=== PATIENT | female | born 2000 | race Caucasian/White ===

== ENCOUNTER 2019-11-06 17:32 | Observation (INO) ==
[2019-11-06] MEDS ORDERED: diPHENhydraMINE IV 50 MG/ML 1 ml VIAL (BENADRYL) IV PRN (20:29)
[2019-11-06] MEDS ORDERED: oxyCODONE/Acetamin 5/325 mg TAB PO PRN (20:29)
[2019-11-06] MEDS ORDERED: Ondansetron 4 mg VIAL 2 MG/ML 2 ml VIAL IV PRN (20:29)
[2019-11-06] MEDS ORDERED: diPHENhydraMINE 25 mg TAB PO PRN (20:29)
[2019-11-06] MEDS ORDERED: Morphine 2 MG/ML SYRINGE IV PRN (20:46)
[2019-11-06] MEDS: oxyCODONE/Acetamin 5/325 mg TAB PO PRN (22:04)
[2019-11-07] MEDS: oxyCODONE/Acetamin 5/325 mg TAB PO PRN ×2 (03:29→08:47)
[2019-11-07] MEDS ORDERED: ceFAZolin 2 GM PREMIX 0 GM/0 ML BAG ONE (07:22)
[2019-11-07] MEDS ORDERED: Midazolam 2 mg/2 ml VIAL 1 mg/ml 2 ml VIAL (2 mg) ONE (07:31)
[2019-11-07] MEDS ORDERED: Bupivacaine 0.5% 50 ML MDV VIAL ONE (07:31)
[2019-11-07] MEDS ORDERED: fentaNYL 100 mcg/2 ml 50 MCG/ML VIAL ONE ×2 (07:35→08:35)
[2019-11-07] MEDS ORDERED: Lidocaine 2% PF 5 ML VIAL ONE (07:36)
[2019-11-07] MEDS ORDERED: DiMENhydriNATE IV 50 mg/ml 1 ml VIAL IV PUSH PRN (07:54)
[2019-11-07] MEDS ORDERED: Ondansetron 4 mg VIAL 2 MG/ML 2 ml VIAL IV PRN (07:54)
[2019-11-07] MEDS ORDERED: Naloxone 0.4 mg VIAL 0.4 mg/ml 1 ml VIAL IV PRN (07:54)
[2019-11-07] MEDS ORDERED: Propofol 10 MG/ML 20 ML BTL ONE (08:00)
[2019-11-07] MEDS ORDERED: Dexamethasone IV 4 MG/ML VIAL 1 ml VIAL ONE (08:00)
[2019-11-07] MEDS ORDERED: Ondansetron 4 mg VIAL 2 MG/ML 2 ml VIAL ONE (08:00)
[2019-11-07] MEDS ORDERED: oxyCODONE/Acetamin 5/325 mg TAB ONE (08:35)
[2019-11-07] MEDS: fentaNYL 100 mcg/2 ml 50 MCG/ML VIAL IV PRN ×2 (08:37→08:48)
[2019-11-07 09:44] VITALS: BP 134/80
== END 2019-11-07 10:00 | disposition home or self-care (01) ==
LOC: SSU 17:32 → ED 17:32
PROVIDERS: ADMIT Internal Medicine; ATTEND Orthopaedic Surgery